=== PATIENT | female | born 1940 | race Caucasian/White ===

== ENCOUNTER 2017-10-25 22:29 | Emergency (ER) | payer OTHER ==
[~2017-10-25] VITALS: Ht 167.6 cm; Wt 65.5 kg
[~2017-10-25 22:29] MED LIST: ACP20 PO; APR25 PO; ASPI81TA28 PO; CYAN10005 PO; FURO-85 PO; LEVO88TA3 PO; LPT10 PO; METO25TA3 PO
[2017-10-25 22:34] VITALS: TEMP 36.5; Ht 167.6 cm; Wt 65.5 kg
[2017-10-25] MEDS ORDERED: RABE20TA5 PO (23:15)
[2017-10-25] MEDS ORDERED: ACETAMINOPHEN 500 MG TAB PO STA (23:22)
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
[2017-10-26 01:55] VITALS: BP 159/92; PULSE 76; O2SAT 98
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
== END 2017-10-26 01:57 | disposition home or self-care (01) ==
LOC: EDBD 22:29 → C.EDC 22:30
DX: S16.1XXA Strain of muscle, fascia and tendon at neck level, initial encounter (principal); V89.2XXA Person injured in unspecified motor-vehicle accident, traffic, initial encounter; Z04.3 Encounter for examination and observation following other accident; N18.3 Chronic kidney disease, stage 3 (moderate); Z82.49 Family history of ischemic heart disease and other diseases of the circulatory system; Z79.82 Long term (current) use of aspirin

== ENCOUNTER → 2017-10-30 | Day surgery (SDC) | payer OTHER ==
[2017-10-27 12:53] VITALS: Ht 167.6 cm; Wt 62.7 kg
[~2017-10-30] VITALS: Ht 167.6 cm; Wt 62.7 kg
[~2017-10-30] MED LIST changes: +500ML BSSPLUS 0.5ML EPI1:1000 IRRIG ONE; +ACETAMINOPHEN 325 MG TAB PO PRN; -ACP20 PO; +ATROPINE SULFATE 0.1 MG/ML 5ML SYR IV PRN; +ATROPINE SULFATE 1% OP SOLN 2 ML BTL ONE; +BSS FLUSH ONE; +BUPIVACAINE HCL 0.75% 10 ML AMP/VIAL ONE; +CEFAZOLIN SOD 1 GM VIAL ONE; -CYAN10005 PO; +DEXAMETHASONE SOD INJ 4 MG/ML VIAL ONE; +EpHEDrine SULFATE INJ 50 MG/ML AMP IV PRN; +EpINEphrine INJ 1MG/ML AMP 1 MG/ML AMP ONE; +FENTANYL CITRATE INJ 50 MCG/1 ML 2 ML VIAL IV PRN; +FENTANYL CITRATE INJ 50 MCG/1 ML 2 ML VIAL ONE; +HYALURONIDASE HUMAN 150 UNIT/ML INJ ONE; +INDOCYANINE GREEN 25 MG/10 ML ONE; +LACTATED RINGER'S 1000ML 500 ML IV SCH; +LIDOCAINE HCL 2% 2 ML VIAL (20MG/ML) ONE; -LPT10 PO; +MIDAZOLAM HCL 1 MG/ML 2ML VIAL ONE; +NEOMYCIN/POLYMYX/DEXAMETH OP OINT PER APP CHARGE OPL ONE; +OCUCOAT 1 ML SOLN IO ONE; +ONDANSETRON INJ 2 MG/ML 2 ML VIAL IV PRN; +PHENYLEPHRINE HCL 10% OP SOLN PER DROP CHARGE ONE; +PHENYLEPHRINE HCL 2.5% OP SOLN PER DROP CHARGE OPL SCH; +POVIDONE-IODINE OP SOLN (SURGERY CNTR CHARGING ONLY) ONE; +PROPARACAINE 0.5% OP SOLN PER DROP CHARGE OPL SCH; +PROPOFOL IV EMULSION 10 MG/ML 20 ML VIAL IV ONE; +RABE20TA5 PO; +TRIAMCINOLONE ACETONIDE OPHTH 40 MG/ML VIAL STERILE IO ONE; +TROPICAMIDE 1% OP SOLN PER DROP CHARGE OPL SCH; +VANCOMYCIN HCL 1000MG/20ML VIAL ONE
--- NOTE | 2017-10-30 06:59 | History & Physical Bridge - SC ---
H&P Re-Evaluation Bridge Note: Pt has epiretinal membrane in left eye and is having vitrectomy left eye. I have examined the patient, reviewed the History & Physical and in the interval since the performance of the History & Physical I have noted the following changes of clinical significance: No changes noted
--- NOTE | 2017-10-30 08:11 | [facility] Operative Report ---
Operative Report Date of Service Oct 30, 2017. Operative Report PREOPERATIVE DIAGNOSIS: Epiretinal membrane, left eye. ICD10: H35.372 POSTOPERATIVE DIAGNOSIS: same. PROCEDURE: 1. Pars plana vitrectomy, 23 gauge. 2. Membrane peeling of the internal limiting membrane and overlying epiretinal membrane. 3. Endolaser. All to the left eye. CPT CODE: 62670 SURGEON: Mario Munoz D.O. COMPLICATIONS: None. ESTIMATED BLOOD LOSS: None. SPECIMENS: None. ANESTHESIA: Retrobulbar block and MAC. INDICATIONS FOR PROCEDURE: The patient has an epiretinal membrane that is visually significant. Vitrectomy surgery is indicated to decrease risk of vision loss and potentially improve vision. CONSENT: The risks, benefits and alternatives were discussed with the patient including but not limited to decreased visual acuity, failure to achieve desired results, loss of the eye, infection, pain, glaucoma, lens changes, retinal tears, retinal detachment, the need for more procedures, drooping of the eyelid, blindness, and double vision. The patient is aware of risks and consents to the surgery. Consent is signed and on the chart. OPERATION AND FINDINGS: The patient was brought to the operating room where the patient was identified by name, date, and medical record number. The surgical site was confirmed with the informed written consent. The patient was sedated by the anesthesiology team after which a 50:50 mixture of 2% lidocaine and 0.75% bupivacaine with hyaluronidase was administered in a standard retrobulbar fashion. A total of 4 ml was administered without difficulty. The patient was then prepped and draped in the usual sterile manner for retinal surgery. A wire lid speculum was placed and an Bob 23-gauge trocar cannula system was employed. The inferior temporal trocar cannula was first placed in an angled fashion 3.75mm posterior to the surgical limbus and the infusion cannula was inserted into this cannula after which the intravitreal position was verified prior to turning the infusion on. Two more trocar cannulas were then inserted in an angled fashion, one in the superior temporal, and one in the superior nasal quadrant both 3.75mm posterior to the surgical limbus. A light pipe and vitrector were then introduced into the eye and the BIOM wide angle viewing system was brought into place. Standard core vitrectomy was performed the vitreous was insured to be totally detached from the posterior pole with the aid of the vitrector. Next 0.05ml of indocyanine green was placed over the macular surface to stain the internal limiting membrane. This was washed from the eye after 10 seconds. At this point a flat contact lens was placed on the surface of the eye and a flex scraper and ILM forceps were used to gently peel the internal limiting membrane and overlying epiretinal membrane off of the macular surface without difficulty. At this point scleral depression was performed for 360 degrees and no retinal tears or detachments were noted but an area of retina traction was noted superior nasally and this area was surrounded by laser. The trocar cannulas were then removed and the superior trocar sites were closed with 8-0 Vicryl suture. The intraocular pressure was found to be within normal limits by palpation and subconjunctival injections of vancomycin and dexamethasone were administered inferiorly and superiorly. The wire lid speculum was removed. Maxitrol was applied to the surface of the eye. A light patch and shield were taped over the surface of the eye and the patient left the Operating Room in stable condition having tolerated the procedure well. DISPOSITION: The patient has an appointment the following morning in the Ophthalmology Clinic. The patient is to call immediately if there are any problems overnight. I attest to the content of the Intraoperative Record and any orders documented therein. Any exceptions are noted below.
--- NOTE | 2017-10-30 08:12 | Discharge Instructions-SurgCtr ---
Discharge Instructions Date of Service Oct 30, 2017. Visit Reason for Visit: Left Eye Epiretinal Membrane Discharge Discharge Diagnosis / Problem: same Discharge Goals Goal(s): Improve function Medications Stopped Medications Name(s): Aspirin and hydralizine. 10/30/17 Activity Recommendations Activity Limitations: per Instructions/Follow-up section Anesthesia . Post Anesthesia Instructions: If you have had General Anesthesia or IV Sedation: * Do not drive today. * Resume driving when surgeon permits. * Do not make important decisions or sign legal documents today. * Call surgeon for: 1. Temperature elevations greater than 101 degrees F. 2. Uncontrollable pain. 3. Excessive bleeding. 4. Persistent nausea and vomiting. 5. Medication intolerance (nausea, vomiting or rash). * For nausea and vomiting use only clear liquids such as: tea, soda, bouillon until nausea subsides, then gradually increase diet as tolerated. * If you have any concerns or questions, call your surgeon's office. If physician is unavailable and it is an emergency, call 911 or go to the nearest emergency room. . Instructions / Follow-Up Instructions / Follow-Up * May take Tylenol if needed for discomfort. * Do NOT remove eye shield. * NO straining, heavy lifting (>15 pounds) or bending below waist. * Avoid getting water or soap directly into operative eye. * Do NOT rub eye. If you experience increasing eye pain not relieved by medication, please contact us immediately at [phone]. If you are unable to reach someone at the above number, call [phone] and ask to speak with the EYE DOCTOR CARD FIXER. Inform them that you are a Dr. Munoz patient who had recent surgery. Diet Recommendations Home Diet: resume previous diet Procedures Procedures Performed: Left Eye 23 Gauge Vitrectomy, Laser, Membrane peel Pending Studies Studies pending at discharge: no Medical Emergencies . Who to Call and When: Medical Emergencies: If at any time you feel your situation is an emergency, please call 911 immediately. . Non-Emergent Contact Non-Emergency issues call your: Disability Examiner . . "Provider Documentation" section prepared by Mario Munoz. .
[2017-10-30 08:13] VITALS: TEMP 36.9
--- NOTE | 2017-10-30 08:28 | Anesthesia Progress Nt - [facility] ---
Anesthesia Post Op Note Date & Time Oct 30, 2017 at 08:28 Vital Signs Pain Intensity: 0 Vital Signs Past 12 Hours Date Time Temp Pulse Resp B/P (MAP) Pulse Ox O2 Delivery O2 Flow Rate FiO2 10/30/17 08:13 36.9 70 18 164/95 (118) 98 Room Air 10/30/17 06:31 37.2 85 18 160/97 (118) 95 Room Air Notes Mental Status: alert / awake / arousable, participated in evaluation Pt Amnestic to Procedure: Yes Nausea / Vomiting: adequately controlled Pain: adequately controlled Airway Patency, RR, SpO2: stable & adequate BP & HR: stable & adequate Hydration State: stable & adequate Anesthetic Complications: no major complications apparent
[2017-10-30 08:40] VITALS: BP 143/84; PULSE 71; O2SAT 97
== END | disposition home or self-care (01) ==
LOC: X.SURG 06:11
PROVIDERS: ATTEND Ophthalmology
DX: H35.372 Puckering of macula, left eye (principal); N18.3 Chronic kidney disease, stage 3 (moderate); Z98.49 Cataract extraction status, unspecified eye; I12.9 Hypertensive chronic kidney disease with stage 1 through stage 4 chronic kidney disease, or unspecified chronic kidney disease

== ENCOUNTER 2019-06-12 21:30 | Inpatient (IN) ==
[2019-06-12] MEDS ORDERED: SODIUM CHLORIDE 0.9% 1000ML 1,000 ML IV SCH (21:45)
[2019-06-12 22:18] LABS: Basophils # (auto) 0.04 K/uL (0-0.2); Basophils % (auto) 0.6 %; Hematocrit (blood only) 37.7 % (37-47); Hemoglobin 12.4 g/dL (12.0-16.0); Immature Granulocytes # (auto) 0.02 K/uL (0.00-0.02); Immature Granulocytes % (auto) 0.3 %; Lymphocytes # (auto) 1.71 K/uL (1.2-3.4); Lymphocytes % (auto) 24.5 %; Mean Corpuscular Hgb Conc 32.9 g/dL (32-36); Mean Corpuscular Volume 85.3 fL (80-100); Mean Platelet Volume 9.7 fL (7.4-10.4); Monocytes # (auto) 0.61 K/uL (0.11-0.59); Monocytes % (auto) 8.7 %; Neutrophils # (auto) 4.61 K/uL (1.4-6.5); Neutrophils % (auto) 65.9 %; Platelet Count 275 K/uL (130-400); RDW Coefficient of Variation 14.2 % (11.5-14.5); RDW Standard Deviation 44.5 fL (36.4-46.3); Red Blood Count 4.42 M/uL (4.2-5.4); White Blood Count 6.99 K/uL (4.8-10.8)
[2019-06-12 22:33] LABS: Partial Thromboplastin Time 28.4 Seconds (21.0-31.0); Prothrombin Time 10.5 Seconds (9.0-12.0)
[2019-06-12 22:36] LABS: Alanine Aminotransferase 20 U/L (12-78); Albumin Level 3.5 gm/dl (3.4-5.0); Aspartate Aminotransferase 15 U/L (15-37); BUN Creatinine Ratio 18.9 (10-20); Blood Urea Nitrogen 26 mg/dl (7-18); Calcium 8.8 mg/dl (8.5-10.1); Carbon Dioxide 24 mmol/L (21-32); Chloride 114 mmol/L (98-107); Creatinine Clr Calc Pharmacy 30.4 ml/min; Est GFR (African American) 41.7; Glucose 106 mg/dl (70-99); Potassium 4.4 mmol/L (3.5-5.1); Sodium 143 mmol/L (136-145)
[2019-06-12 22:41] LABS: Albumin Globulin Ratio 1.2 (0.9-2); Alkaline Phosphatase 68 U/L (45-117); Bilirubin,Total 0.3 mg/dl (0.2-1); Globulin 2.9 gm/dl (2.5-4.0); Total Protein 6.4 gm/dl (6.4-8.2); Troponin I < 0.015 ng/ml (0-0.045)
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
--- NOTE | 2019-06-12 23:53 | Emergency Department Note ---
Entered by Adrianna Pérez acting as a scribe for Alton Adams DO History of Present Illness General Chief complaint: Rectal Bleed Stated complaint: RECTAL BLEED Source: patient History of Present Illness Onset (ago): hour(s) (3.5) Location: abdomen Pain Consistency: + other (episode) Maximum Pain Intensity: 0 Quality: + other (rectal bleeding ) Associated symptoms: + nausea/vomiting (positive nausea; negative vomiting ) and + other (negative abdominal pain; negative runny nose); no chest pain and no cough The patient is a 78 year old female with PMHx of CKD who presents to the Emergency Room with complaints of an episode of rectal bleeding that began at about 1800, 3.5 hours prior to arrival. She states that she was not straining to use the restroom any more than usual. The patient reports there was no stool, just blood along with several clots. The patient denies abdominal pain, chest pain, runny nose, and cough. She reports some nausea. The patient states that she takes aspirin regularly. She has that her abdomen does feel little bit upset but has no significant pain. No other exacerbating or remitting factors. Home Medications Home Medications Medication Instructions Recorded Confirmed Type aspirin 81 mg PO QAM 06/12/19 06/12/19 History cholecalciferol (vitamin D3) 2,000 unit PO QAM 06/12/19 06/12/19 History [Vitamin D3] furosemide 20 mg PO DAILY PRN 06/12/19 06/12/19 History hydralazine 25 mg PO TID 06/12/19 06/12/19 History levothyroxine 75 mcg PO QAM 06/12/19 06/12/19 History metoprolol succinate 25 mg PO QAM 06/12/19 06/12/19 History rabeprazole 20 mg PO QAM 06/12/19 06/12/19 History Allergies Allergy/AdvReac Type Severity Reaction Status Date / Time cephalexin Allergy Unknown HIVES Verified 06/12/19 22:38 felodipine Allergy Unknown FACE Verified 06/12/19 22:38 FLUSHED, ANKLES SWELLING glycopyrrolate Allergy Unknown WEAKNESS, Verified 06/12/19 22:38 FLUSING, BLOATING Iodinated Contrast- Oral and Allergy Unknown UNKNOWN Verified 06/12/19 22:38 IV Dye iodine Allergy Unknown UNKNOWN Verified 06/12/19 22:38 metoclopramide Allergy Unknown DIZZY, Verified 06/12/19 22:38 DROWSY omeprazole Allergy Unknown TROUBLE Verified 06/12/19 22:38 BREATHING Sulfa (Sulfonamide Allergy Unknown HIVES Verified 06/12/19 22:38 Antibiotics) Past Med/Surg History Medical History Chronic kidney disease, stage III (moderate) (Chronic) Social History Preferred Language: Cymraes Feels Safe at Home: Yes Smoking Status: Never smoker Review of Systems See HPI for pertinent positives & negatives. and A total of 10 systems reviewed and were otherwise negative Physical Exam Vital Signs Vital Signs - 24 hr 06/12/19 21:31 06/12/19 22:24 06/12/19 22:34 Temperature 36.5 C Temperature Source Oral Sepsis Recent Fever Within 48 Hours No Sepsis Action Taken by Nursing No Action Required Pulse Rate 100 H Pulse Rate [Apical] 80 Pulse Rhythm Regular Pulse Strength Normal Respiratory Rate 20 18 Respiratory Effort / Characteristics Non-Labored Spontaneous Non-Labored Respiratory Depth Normal Normal Blood Pressure 153/87 H Blood Pressure [Right Arm] 149/95 H Blood Pressure Mean 109 Blood Pressure Mean [Right Arm] 113 Blood Pressure Position Sitting Pulse Oximetry 97 97 97 Oxygen Delivery Method Room Air Room Air Room Air 06/12/19 23:39 Temperature Temperature Source Sepsis Recent Fever Within 48 Hours Sepsis Action Taken by Nursing Pulse Rate Pulse Rate [Apical] 80 Pulse Rhythm Pulse Strength Respiratory Rate 18 Respiratory Effort / Characteristics Respiratory Depth Blood Pressure Blood Pressure [Right Arm] 161/98 H Blood Pressure Mean Blood Pressure Mean [Right Arm] 119 Blood Pressure Position Pulse Oximetry 98 Oxygen Delivery Method Room Air GENERAL: Sitting up in bed, talking in full sentences. non-toxic EYE EXAM: normal conjunctiva OROPHARYNX: no exudate, no erythema, lips, buccal mucosa, and tongue normal and mucous membranes are moist NECK: supple, no nuchal rigidity, no adenopathy, non-tender LUNGS: Clear to auscultation. Normal chest wall mechanics HEART: no murmurs, S1 normal and S2 normal ABDOMEN: abdomen soft, non-tender, normo-active bowel sounds, no masses, no rebound or guarding. BACK: Back is symmetrical on inspection and there is no deformity, no midline tenderness, no CVA tenderness. RECTAL: deferred as she had bright red blood in the commode. SKIN: no rashes and no bruising UPPER EXTREMITIES: upper extremities are grossly normal. LOWER EXTREMITIES: No pitting edema. NEURO EXAM: Normal sensorium, cranial nerves II-XII grossly intact, normal speech, no gross weakness of arms, no gross weakness of legs. Course ED COURSE: Vital signs were reviewed and showed hypertensive. The patients medical record was reviewed The above diagnostic studies were performed and reviewed. ED treatments and interventions as stated above. 8: The patient was evaluated in room B10. A complete history and physical examination was performed. 0: The patient had another episode of a bowel movement with bright red blood. 4: Upon reevaluation, the patient is .I discussed my findings with the patient and she understands and agrees with the treatment plan. 7: [facility] for further evaluation. Based on the patients age, coexisting illnesses, exam and lab findings the decision to treat as an inpatient was made. The patient remained stable while under my care. The patient will be evaluated for further management. Administered Medications Discontinued Medications Sodium Chloride (Nss 1000ml) 1,000 mls @ 999 mls/hr IV .Q1H1M DUGLAS Stop: 06/12/19 22:45 Last Admin: 06/12/19 22:44 Dose: 999 mls/hr Documented by: [id number] Medical Decision Making Differential Diagnosis Differential diagnoses includes but is not limited to gastritis, peptic ulcer disease, GERD, gallbladder disease, pancreatitis, small bowel obstruction, acute coronary syndrome, pericarditis, ischemic bowel, irritable bowel disease, irritable bowel syndrome, appendicitis, diverticulitis, malignancy, hernia, urinary tract infection, torsion, /ectopic (if female), perforation, trauma, infectious. Medical Records Attestation: I reviewed the patient's medical records. Home Medications Current Medication List: was personally reviewed by me Laboratory Data Attestation: I reviewed the patient's lab results. Result diagrams: 06/12/19 22:07 06/12/19 22:07 Lab Results 06/12/19 06/12/19 06/12/19 Range/Units 22:07 22:07 22:07 WBC 6.99 (4.8-10.8) K/uL RBC 4.42 (4.2-5.4) M/uL Hgb 12.4 (12.0-16.0) g/dL Hct 37.7 (37-47) % MCV 85.3 (80-100) fL MCH 28.1 (25-34) pg MCHC 32.9 (32-36) g/dL RDW Std Deviation 44.5 (36.4-46.3) fL RDW Coeff of Leslie 14.2 (11.5-14.5) % Plt Count 275 (130-400) K/uL MPV 9.7 (7.4-10.4) fL Immature Gran % (Auto) 0.3 % Neut % (Auto) 65.9 % Lymph % (Auto) 24.5 % [place] % (Auto) 8.7 % Eos % (Auto) 0.0 % Baso % (Auto) 0.6 % Immature Gran # (Auto) 0.02 (0.00-0.02) K/uL Neut # (Auto) 4.61 (1.4-6.5) K/uL Lymph # (Auto) 1.71 (1.2-3.4) K/uL [place] # (Auto) 0.61 H (0.11-0.59) K/uL Eos # (Auto) 0.00 (0-0.5) K/uL Baso # (Auto) 0.04 (0-0.2) K/uL PT 10.5 (9.0-12.0) Seconds INR 1.0 (0.9-1.1) APTT 28.4 (21.0-31.0) Seconds PTT Ratio 1.0 Sodium 143 (136-145) mmol/L Potassium 4.4 (3.5-5.1) mmol/L Chloride 114 H (98-107) mmol/L Carbon Dioxide 24 (21-32) mmol/L Anion Gap 6.0 (3-11) BUN 26 H (7-18) mg/dl Creatinine 1.38 H (0.6-1.2) mg/dl Est Cr Clr Drug Dosing 30.4 ml/min Est GFR ( Amer) 41.7 Est GFR (Non-Af Amer) 36.0 BUN/Creatinine Ratio 18.9 (10-20) Glucose 106 H (70-99) mg/dl Calcium 8.8 (8.5-10.1) mg/dl Total Bilirubin 0.3 (0.2-1) mg/dl AST 15 (15-37) U/L ALT 20 (12-78) U/L Alkaline Phosphatase 68 (45-117) U/L Troponin I < 0.015 (0-0.045) ng/ml Total Protein 6.4 (6.4-8.2) gm/dl Albumin 3.5 (3.4-5.0) gm/dl Globulin 2.9 (2.5-4.0) gm/dl Albumin/Globulin Ratio 1.2 (0.9-2) POC Stool Occult Blood (Negative) Blood Type Antibody Screen 06/12/19 06/12/19 Range/Units 22:10 Unknown WBC (4.8-10.8) K/uL RBC (4.2-5.4) M/uL Hgb (12.0-16.0) g/dL Hct (37-47) % MCV (80-100) fL MCH (25-34) pg MCHC (32-36) g/dL RDW Std Deviation (36.4-46.3) fL RDW Coeff of Leslie (11.5-14.5) % Plt Count (130-400) K/uL MPV (7.4-10.4) fL Immature Gran % (Auto) % Neut % (Auto) % Lymph % (Auto) % [place] % (Auto) % Eos % (Auto) % Baso % (Auto) % Immature Gran # (Auto) (0.00-0.02) K/uL Neut # (Auto) (1.4-6.5) K/uL Lymph # (Auto) (1.2-3.4) K/uL [place] # (Auto) (0.11-0.59) K/uL Eos # (Auto) (0-0.5) K/uL Baso # (Auto) (0-0.2) K/uL PT (9.0-12.0) Seconds INR (0.9-1.1) APTT (21.0-31.0) Seconds PTT Ratio Sodium (136-145) mmol/L Potassium (3.5-5.1) mmol/L Chloride (98-107) mmol/L Carbon Dioxide (21-32) mmol/L Anion Gap (3-11) BUN (7-18) mg/dl Creatinine (0.6-1.2) mg/dl Est Cr Clr Drug Dosing ml/min Est GFR ( Amer) Est GFR (Non-Af Amer) BUN/Creatinine Ratio (10-20) Glucose (70-99) mg/dl Calcium (8.5-10.1) mg/dl Total Bilirubin (0.2-1) mg/dl AST (15-37) U/L ALT (12-78) U/L Alkaline Phosphatase (45-117) U/L Troponin I (0-0.045) ng/ml Total Protein (6.4-8.2) gm/dl Albumin (3.4-5.0) gm/dl Globulin (2.5-4.0) gm/dl Albumin/Globulin Ratio (0.9-2) POC Stool Occult Blood Positive A (Negative) Blood Type O Positive Antibody Screen NEGATIVE Imaging Data Radiologist's Impression: Radiology results as stated below per my review and the radiologist's interpretation: CT abd pelvis wo con CT DOSE: 301.78 mGy.cm HISTORY: Pain. Bleeding. GI bleed abd pain TECHNIQUE: Multiaxial CT images of the abdomen and pelvis were performed without contrast. A dose lowering technique was utilized adhering to the principles of ALARA. COMPARISON STUDY: 12/10/2008 FINDINGS: Limited study due to the absence of contrast enhancement. The liver spleen and pancreas are unremarkable. Bowel pattern is nonobstructive. Scattered colonic diverticulosis. No evidence for acute diverticulitis. Liquid stool within the rectum. Bladder is midline. IMPRESSION: 1. Scattered colonic diverticuli. 2. Otherwise negative study within the limitations of an unenhanced scan. The above report was generated using voice recognition software. It may contain grammatical, syntax or spelling errors. Electronically signed by: Fernando Barakat M.D. 06/12/2019 11:22 PM ECG Data Attestation: I personally reviewed and interpreted this ECG as follows: Indication: nausea Rate (beats per minute): 69 Rhythm: sinus rhythm Findings: + other (normal axis; nonspecific ST wave changes in the inferior and lateral leads ) Comparison ECG Date: from (06/15/16) Change: no significant change Blood Pressure Blood Pressure Findings: Elevated blood pressure Blood Pressure Disposition: further management by hospitalist MDM Narrative Patient is an 78-year-old female who presents the ER for bright red blood per rectum x3 episodes. She admits to taking aspirin but no other complaints. She denies any straining. She does have some mild abdominal discomfort. She was sl ightly hypertensive. IV was established blood work was obtained showed no significant leukocytosis or anemia. INR was unremarkable. BMP with a creatinine of 1.38. LFTs bilirubin and troponin was unremarkable. Patient was typed and screened. She is given IV fluids. CT abdomen pelvis shows no acute pathology. Patient was updated bedside and discussed with the hospitalist for observation due to 3 episodes of bright red blood per rectum. Patient without persistent diarrhea and consequently C. difficile was not ordered. Impression & Plan GI bleed, Abdominal pain Discharge Plan Visit Data Chief Complaint: Rectal Bleed Stated Complaint: RECTAL BLEED ED Provider: Alton Adams Discharge Problem: GI bleed, Abdominal pain Patient Disposition: Being Evaluated by Hospitalist Forms Stand Alone Forms: My [facility] Prescriptions Prescriptions: No Action rabeprazole 20 mg tablet,delayed release (DR/EC) 20 mg PO QAM RF: 0 hydralazine 25 mg tablet 25 mg PO TID RF: 0 aspirin 81 mg Tablet,Delayed Release (Dr/Ec) 81 mg PO QAM RF: 0 levothyroxine 75 mcg tablet 75 mcg PO QAM RF: 0 furosemide 20 mg tablet 20 mg PO DAILY PRN (Reason: Edema) RF: 0 metoprolol succinate 25 mg tablet extended release 24 hr 25 mg PO QAM RF: 0 cholecalciferol (vitamin D3) [Vitamin D3] 2,000 unit Tablet 2,000 unit PO QAM RF: 0 Referrals Referrals: Angelito Guzman MD [Primary Care Provider] - Discharge Problem: GI bleed Qualifiers: GI bleed type/associated pathology: unspecified gastrointestinal hemorrhage type Qualified Code(s): K92.2 - Gastrointestinal hemorrhage, unspecified Abdominal pain Qualifiers: Abdominal location: generalized Qualified Code(s): R10.84 - Generalized a bdominal pain The scribe's documentation has been prepared under my direction and personally reviewed by me in its entirety. I confirm that the note above accurately reflects all work, treatment, procedures, and medical decision making performed by me.
[2019-06-13] MEDS ORDERED: SODIUM CHLORIDE 0.9% 250 ML IV PRN (02:37)
[2019-06-13] MEDS: SODIUM CHLORIDE 0.9% 1000ML 1,000 ML IV SCH ×3 (03:37→23:15)
[2019-06-13 05:28] LABS: Basophils # (auto) 0.02 K/uL (0-0.2); Basophils % (auto) 0.3 %; Hematocrit (blood only) 28.1 % (37-47); Hemoglobin 9.3 g/dL (12.0-16.0); Immature Granulocytes # (auto) 0.04 K/uL (0.00-0.02); Immature Granulocytes % (auto) 0.7 %; Lymphocytes # (auto) 1.53 K/uL (1.2-3.4); Mean Corpuscular Hgb Conc 33.1 g/dL (32-36); Mean Corpuscular Volume 86.5 fL (80-100); Mean Platelet Volume 9.7 fL (7.4-10.4); Monocytes # (auto) 0.46 K/uL (0.11-0.59); Monocytes % (auto) 7.5 %; Neutrophils # (auto) 4.06 K/uL (1.4-6.5); Neutrophils % (auto) 66.5 %; Platelet Count 237 K/uL (130-400); RDW Coefficient of Variation 14.3 % (11.5-14.5); RDW Standard Deviation 45.2 fL (36.4-46.3); Red Blood Count 3.25 M/uL (4.2-5.4); White Blood Count 6.11 K/uL (4.8-10.8)
[2019-06-13 05:40] LABS: BUN Creatinine Ratio 22.2 (10-20); Calcium 7.7 mg/dl (8.5-10.1); Creatinine Clr Calc Pharmacy 36.8 ml/min; Est GFR (African American) 52.6; Est GFR (Non-African American) 45.4; Potassium 4.6 mmol/L (3.5-5.1)
[2019-06-13] MEDS: LEVOTHYROXINE SODIUM 75 MCG TABLET PO SCH (06:33)
--- NOTE | 2019-06-13 08:17 | History and Physical Report ---
DATE OF ADMISSION: 06/13/2019 CHIEF COMPLAINT: Bright red blood per rectum. HISTORY OF PRESENT ILLNESS: This is an 78-year-old female with past medical history significant for hypothyroidism, hyperlipidemia, chronic kidney disease stage III, hypertension, irritable bowel syndrome, Moncada's esophagus, gastroparesis, history of cervical disease with myelopathy, presents with bright red blood per rectum. It started yesterday evening. Few episodes at home and couple of episodes in the ER. Hemodynamically stable. This is the first time it happened. Denies abdominal pain. No nausea, no vomiting. Currently resting comfortably and hemodynamically stable. Denies any chest pain, no shortness of breath, no cough, no fever, no chills, no headache, no blurred vision, no earache, no runny nose, no sore throat, no difficulty swallowing. Otherwise, appetite is okay. Lives with her . Ambulates okay. ALLERGIES: CEPHALEXIN, FELODIPINE, GLYCOPYRROLATE, IV DYE, IODINE, REGLAN, OMEPRAZOLE, SULFA ANTIBIOTICS. PAST MEDICAL HISTORY: As mentioned above. PAST SURGICAL HISTORY: Breast lesion excision, colonoscopy with biopsy, EGDs with biopsies, EGD with endoscopic ultrasound, partial removal of thyroid lobe, cataract surgery bilateral, inguinal hernia repair, small bowel endoscopy with biopsy, total hysterectomy and left vitrectomy. MEDICATIONS: The patient is on vitamin D 2000 units p.o. daily, rabeprazole 20 mg p.o. daily, Toprol-XL 25 mg p.o. daily, hydralazine 25 mg p.o. t.i.d., levothyroxine 75 mcg daily, Lasix 20 mg p.r.n., aspirin 81 mg p.o. daily. FAMILY HISTORY: Significant for father had prostate cancer. Mother had lung cancer. Sister has pancreatic cancer. SOCIAL HISTORY: , lives with her . No smoking. Alcohol occasional. No drug use. REVIEW OF SYMPTOMS: As per HPI. Rest of review of systems negative. PHYSICAL EXAMINATION: GENERAL: The patient is of moderate build, not in acute distress. VITAL SIGNS: Temperature 36.4, pulse 79, respiratory rate 18, blood pressure 121/78, oxygen 98% room air. HEENT: No pallor, no icterus. Pupils equal, round, reactive to light. NECK: No JVD, no neck masses, no carotid bruits. CARDIOVASCULAR: S1, S2 heard, regular rate and rhythm, no murmur, no gallop. RESPIRATORY SYSTEM: Normal AP diameter. No accessory muscle use. No wheezing, no crackles. ABDOMEN: Soft, bowel sounds present, nontender. No distention. CENTRAL NERVOUS SYSTEM: Cranial nerves II-XII grossly intact. Nonfocal. EXTREMITIES: No edema, no erythema. LABORATORY DATA: WBC 6.1, hemoglobin when she came in was 12.4, hematocrit 28.1, platelets 237. PT 10.5, INR 1, APTT 28.4. Sodium 142, potassium 4.4, chloride 114, CO2 24, BUN 26, creatinine 1.38, serum glucose 106, calcium 8.8. Total bilirubin 0.3, AST 15, ALT 20, alkaline phosphatase 60. Troponin I less than 0.015. Hemoccult positive. EKG: Normal sinus rhythm, rate of 69, nonspecific ST abnormality seen. CT of the abdomen and pelvis shows scattered colonic diverticula, otherwise negative study. ASSESSMENT AND PLAN: This is an 78-year-old female presents with painless bright red blood per rectum. 1. Bright red blood per rectum. No abdominal pain. CAT scans showing scattered diverticula, most likely diverticular bleed, has significant amount of bleeding. We will follow hemoglobin and hematocrit q.6 hours. We will type and cross and hold 2 units of PRBCs and transfuse if hemoglobin drops down. Currently hemodynamically stable. Keep her n.p.o. IV Protonix b.i.d. Most likely lower gastrointestinal bleed. We will consult gastroenterology in a.m. for further recommendations. Close monitor on tele floor. 2. History of hypertension. Continue home Toprol-XL with holding parameters and hydralazine with holding parameters. 3. Chronic kidney disease stage III, baseline creatinine 1.4-1.6, presented with creatinine of 1.3. We will follow the labs. 4. Deep venous thrombosis prophylaxis, sequential compression devices for now. 5. Disposition: Closely monitor in tele floor. Level 1 full code. MTDD
[2019-06-13] MEDS: METOPROLOL SUCC 25MG EXT REL TAB PO SCH (08:21)
[2019-06-13] MEDS: PANTOprazole 40 MG in SYRINGE 0 ML IV SCH ×2 (08:22→20:23)
--- NOTE | 2019-06-13 08:32 | Gastrointestinal Consultation ---
Date of Consultation June 13, 2019 Assessment & Plan (1) GI bleed: Ms. Mariela Diallo is an 78 yr old female with significant (drop in Hb) painless rectal bleeding. In the setting of diverticulosis, this most likely represents a diverticular bleed. 1. Colonoscopy prep today. 2. Clear liquids po today. 3. Appreciate primary hospitalists management of fluid/blood resuscitation. Transfuse if indicated. 4. Please keep careful VS and output records. If bleeding continues then colonoscopy tomorrow. If no further rectal bleeding and no further drop in Hb, then could defer to outpatient colonoscopy in a few months. Present on Admission?: Yes Supervising Physician Co-Signing Physician Notes I saw and evaluated the patient. She presents with painless hematochezia. She notes that the last bowel movement with blood in it was last evening. Physical examination No obvious distress no abdominal tenderness Impression: Patient likely with a diverticular hemorrhage. We are certainly happy to provide a bowel preparation this evening to see if the bleeding has truly discontinued. If bleeding persists we could try and perform a colonoscopy tomorrow otherwise, I would recommend a delayed colonoscopy in 6 to 8 weeks. History of Present Illness Reason for Consultation: Rectal bleed. Requesting Physician: Dr. Terry Attending Physician: Freedom Le MD History of Present Illness Ms. Mariela Diallo is an 78 yr old female pt of Dr. Guzman with a hx of CKD3, hypothyroid, HTN, Moncada's esophagus was brought to the ED last evening because she experienced two episodes of painless bright red BMs with clots. This occurred last evening at 6PMand 8:30PM. On arrival: Hb 12->9.3. BUN26->25 but Cr also mildly elevated at 1.4. Noncontrast Ct with diverticulosis. She denies any abdominal pain, "just a little gurgling before the first BM." No fevers, chills, sweats, nausea, vomiting CP or SOB. INR is 1.1 and she is not on any anticoagulants but does take ASA 81mg/day. Her most recent colonoscopy was in [address] Iverson with on 7mm polyp, sigmoid diverticulosis and internal hemorrhoids. Allergies Allergy/AdvReac Type Severity Reaction Status Date / Time cephalexin Allergy Unknown HIVES Verified 06/12/19 22:38 felodipine Allergy Unknown FACE Verified 06/12/19 22:38 FLUSHED, ANKLES SWELLING glycopyrrolate Allergy Unknown WEAKNESS, Verified 06/12/19 22:38 FLUSING, BLOATING Iodinated Contrast- Oral and Allergy Unknown UNKNOWN Verified 06/12/19 22:38 IV Dye iodine Allergy Unknown UNKNOWN Verified 06/12/19 22:38 metoclopramide Allergy Unknown DIZZY, Verified 06/12/19 22:38 DROWSY omeprazole Allergy Unknown TROUBLE Verified 06/12/19 22:38 BREATHING Sulfa (Sulfonamide Allergy Unknown HIVES Verified 06/12/19 22:38 Antibiotics) Home Medications Home Medications Medication Instructions Recorded Confirmed Type aspirin 81 mg PO QAM 06/12/19 06/12/19 History cholecalciferol (vitamin D3) 2,000 unit PO QAM 06/12/19 06/12/19 History [Vitamin D3] furosemide 20 mg PO DAILY PRN 06/12/19 06/12/19 History hydralazine 25 mg PO TID 06/12/19 06/12/19 History levothyroxine 75 mcg PO QAM 06/12/19 06/12/19 History metoprolol succinate 25 mg PO QAM 06/12/19 06/12/19 History rabeprazole 20 mg PO QAM 06/12/19 06/12/19 History Patient History Medical History Chronic kidney disease, stage III (moderate) (Chronic) Family History Sister Cancer Mother Cancer Father Cancer Social History Preferred Language: Arabic Communication Ability: Effective Rubber Liner Required: No Beliefs That Will Affect Care: None Current Living Situation: Spouse Other Information That Helps Us Care for You: No Feels Safe at Home: Yes Safety Concerns: Feels Safe At This Time Smoking Status: Never smoker Hx Alcohol Use: Yes Hx Substance Use: No Review of Systems Constitutional: no fever, no chills, no body aches, no fatigue, no weakness, no weight loss and no weight gain Eyes: + corrective lenses and + itchy eyes; no dry eyes and no eye pain Ear, Nose, Mouth, Throat: no ear pain, no tinnitus and no dizziness Respiratory: no cough and no wheezing Mild chronic SOB and no change in the past week Cardiovascular: no chest pain, no palpitations, no syncope and no edema Gastrointestinal: no abdominal pain, no nausea and no vomiting Genitourinary: no dysuria, no hematuria and no pelvic pain Integumentary: no rash, no lesions, no sores and no change in skin color Neurologic: no gait abnormality, no falls, no localized weakness, no tremor(s) and no confusion Psychiatric: no depression, no anxiety and no confusion Endocrine: no fatigue, no polydipsia, no polyphagia and no polyuria Allergy / Immunological: no GI upset with certain foods, no urticaria, no wheezing and no cough Physical Exam Constitutional: WD/WN, vitals as above well developed and well nourished Eyes: PERRL, conjunctivae normal, anicteric sclerae ENMT: external ear and nose normal, oropharynx normal Neck: trachea midline, no thyromegaly Respiratory: normal respiratory effort, lungs clear to auscultation Cardiovascular: RRR, no murmur, no edema Gastrointestinal (Abdomen): normal bowel sounds, soft, nontender, no hepatosplenomegaly Musculoskeletal: no cyanosis or clubbing, extremities motor strength 5/5 Skin: no rashes, warm and dry Neurologic: patellar DTR's 2+ bilat, sensation intact Psychiatric: A+Ox3, euthymic affect Lymphatic: no cervical or axillary lymphadenopathy Results & Data Vital Signs (Past 12 Hours) Vital Signs Temp Pulse Pulse Resp BP BP BP 06/13/19 08:22 67 110/68 06/13/19 07:05 36.5 C 81 17 97/58 L 06/13/19 02:00 36.4 C L 79 18 121/78 06/12/19 23:39 80 18 161/98 H 06/12/19 22:34 80 18 149/95 H 06/12/19 22:24 06/12/19 21:31 36.5 C 100 H 20 153/87 H Pulse Ox 06/13/19 08:22 06/13/19 07:05 98 06/13/19 02:00 98 06/12/19 23:39 98 06/12/19 22:34 97 06/12/19 22:24 97 06/12/19 21:31 97 Laboratory Results WBC 6, Hb 9.3, Hct 28, platelets 237, Na 144, K 4.6, BUN 25, Cr 1.14. Normal LFTs Diagnostic Findings CT 7/24/19: 1. Scattered colonic diverticuli. 2. Otherwise negative study within the limitations of an unenhanced scan. (1) GI bleed GI bleed type/associated pathology: unspecified gastrointestinal hemorrhage type Qualified Code(s): K92.2 - Gastrointestinal hemorrhage, unspecified
[2019-06-13] MEDS ORDERED: FAMOTIDINE 20 MG in SYRINGE 3 ML IV SCH (09:00)
[2019-06-13 11:08] LABS: Hematocrit (blood only) 27.3 % (37-47); Hemoglobin 9.1 g/dL (12.0-16.0)
[2019-06-13] MEDS: LAVAGE SOLUTION 4000ML PO SCH ×2 (12:18→18:02)
[2019-06-13 16:52] LABS: Hematocrit (blood only) 27.1 % (37-47)
--- NOTE | 2019-06-13 18:49 | Hospitalist Progress Note ---
Date of Service June 13, 2019 Assessment & Plan (1) Bright red rectal bleeding: Admitted with bright red rectal bleeding about 5-6 times before admission Denies any significant abdominal pain Has not had this problem before She does not remember when she had a colonoscopy GI consult-appreciate input and recommendation Hemoglobin is dropped from 12 to 9 Monitor H&H Colonoscopy tomorrow Present on Admission?: Yes (2) Abdominal pain: No significant abdominal pain Clinically no tenderness and no distention (3) Chronic kidney disease, stage III (moderate): Monitor p.m. to evaluate hospital (4) HTN (hypertension): Blood pressure remains stable DVT prophylaxis SCDs CODE STATUS DNR Subjective 06/13 Patient was seen and examined in telemetry unit He was admitted with bright red rectal bleed about 5 or 6 times prior to admission Denies any abdominal pain No more bleeding since admission Review of Systems Review of Systems: All systems reviewed and unremarkable except as noted below Gastrointestinal: no abdominal pain, no bloating, no cramping and no melena Physical Exam Physical Exam: No apparent distress at rest Constitutional: well developed and well nourished; no acute distress and not ill appearing Eyes: PERRL, conjunctivae normal, anicteric sclerae ENMT: external ear and nose normal, oropharynx normal Neck: trachea midline, no thyromegaly Respiratory: normal respiratory effort Cardiovascular: Rate/Rhythm: regular rate and regular rhythm Gastrointestinal (Abdomen): Inspection/Auscultation: abdomen normal to inspection and normal bowel sounds; abdomen not distended Percussion/Palpation: abdomen soft; abdomen nontender Musculoskeletal: No acute arthritis Lymphatic: no cervical or axillary lymphadenopathy Results & Data Vital Signs (Past 12 Hours) Vital Signs Temp Pulse Pulse Pulse Resp BP Pulse Ox 06/13/19 16:16 36.5 C 73 16 129/67 99 06/13/19 15:59 80 06/13/19 14:02 91 H 138/82 06/13/19 11:45 36.6 C 73 18 117/70 98 06/13/19 08:22 67 110/68 06/13/19 08:20 68 06/13/19 07:05 36.5 C 81 17 97/58 L 98 Laboratory Results Short CBC 06/12/19 06/13/19 06/13/19 Range/Units 22:07 05:15 10:48 WBC 6.99 6.11 (4.8-10.8) K/uL Hgb 12.4 9.3 L D 9.1 L (12.0-16.0) g/dL Hct 37.7 28.1 L 27.3 L (37-47) % Plt Count 275 237 (130-400) K/uL 06/13/19 Range/Units 16:46 WBC (4.8-10.8) K/uL Hgb 9.0 L (12.0-16.0) g/dL Hct 27.1 L (37-47) % Plt Count (130-400) K/uL BMP 06/12/19 06/13/19 22:07 05:15 Sodium 143 144 Potassium 4.4 4.6 Chloride 114 H 116 H Carbon Dioxide 24 24 BUN 26 H 25 H Creatinine 1.38 H 1.14 Glucose 106 H 96 Calcium 8.8 7.7 L Cardiac Enzymes 06/12/19 Range/Units 22:07 Troponin I < 0.015 (0-0.045) ng/ml Liver Function 06/12/19 Range/Units 22:07 Total Bilirubin 0.3 (0.2-1) mg/dl AST 15 (15-37) U/L ALT 20 (12-78) U/L Alkaline Phosphatase 68 (45-117) U/L Albumin 3.5 (3.4-5.0) gm/dl Medications Administered Current Inpatient Medications Hydralazine HCl (Apresoline) 25 mg PO TID [facility] Stop: 07/13/19 08:59 Last Admin: 06/13/19 14:04 Dose: 25 mg Documented by: Sodium Chloride (Nss) 250 mls @ 15 mls/hr IV .[id number] PRN PRN Reason: For Transfusion Stop: 07/13/19 02:36 Sodium Chloride (Nss 1000ml) 1,000 mls @ 100 mls/hr IV .Q10H [facility] Stop: 07/13/19 03:14 Last Admin: 06/13/19 13:16 Dose: 100 mls/hr Documented by: Pantoprazole Sodium 40 mg/ (Syringe) 10 mls @ 5 mls/min IV BID@0900,2100 [facility] Stop: 07/13/19 08:59 Last Admin: 06/13/19 08:22 Dose: 5 mls/min Documented by: Levothyroxine Sodium (Synthroid) 75 mcg PO DAILYBB [facility] Stop: 07/13/19 06:29 Last Admin: 06/13/19 06:33 Dose: 75 mcg Documented by: Metoprolol Succinate ([facility] Xl) [facility] [place]: 07/13/19 08:59 Last Admin: 06/13/19 08:21 Dose: 25 mg Documented by: (1) Abdominal pain Abdominal location: generalized Qualified Code(s): R10.84 - Generalized abdominal pain
[2019-06-13 23:12] LABS: Hematocrit (blood only) 27.1 % (37-47)
[2019-06-14] MEDS: LEVOTHYROXINE SODIUM 75 MCG TABLET PO SCH (06:04)
[2019-06-14 06:34] LABS: Basophils # (auto) 0.02 K/uL (0-0.2); Basophils % (auto) 0.5 %; Hematocrit (blood only) 24.3 % (37-47); Hemoglobin 7.9 g/dL (12.0-16.0); Immature Granulocytes # (auto) 0.03 K/uL (0.00-0.02); Immature Granulocytes % (auto) 0.7 %; Lymphocytes # (auto) 1.44 K/uL (1.2-3.4); Lymphocytes % (auto) 32.7 %; Mean Corpuscular Hgb Conc 32.5 g/dL (32-36); Mean Corpuscular Volume 86.8 fL (80-100); Mean Platelet Volume 9.6 fL (7.4-10.4); Monocytes # (auto) 0.35 K/uL (0.11-0.59); Monocytes % (auto) 7.9 %; Neutrophils # (auto) 2.57 K/uL (1.4-6.5); Neutrophils % (auto) 58.2 %; Platelet Count 223 K/uL (130-400); RDW Coefficient of Variation 14.2 % (11.5-14.5); RDW Standard Deviation 45.3 fL (36.4-46.3); White Blood Count 4.41 K/uL (4.8-10.8)
[2019-06-14 07:04] LABS: RBC Morphology Unremarkable
[2019-06-14 07:17] LABS: BUN Creatinine Ratio 14.3 (10-20); Calcium 7.7 mg/dl (8.5-10.1); Est GFR (African American) 61.6; Est GFR (Non-African American) 53.2; Potassium 4.1 mmol/L (3.5-5.1)
[2019-06-14] MEDS: PANTOprazole 40 MG in SYRINGE 0 ML IV SCH ×2 (07:29→20:39)
[2019-06-14] MEDS: METOPROLOL SUCC 25MG EXT REL TAB PO SCH (08:12)
--- NOTE | 2019-06-14 08:39 | Gastroenterology Progress Note ---
Date of Service June 14, 2019 Assessment & Plan (1) GI bleed: Ms. Mariela Diallo is an 78 yr old female with significant (drop in Hb) painless rectal bleeding. In the setting of diverticulosis, this most likely represents a diverticular bleed. 1. Colonoscopy today. Will also add EGD for more complete anemia work up. 2. Please keep pt NPO. Supervising Physician Co-Signing Physician Notes We are planning to do upper endoscopy and colonoscopy to evaluate this patient's history of anemia and hematochezia. We discussed the risks to include bleeding, infection, perforation and need for follow-up exams. Subjective Ms. Mariela Diallo is an 78 yr old female who presented for painless bright red rectal bleeding on 06/12/19. Hb 12-> 7.9 CT abd/pelvis (non contrast) on arrival with diverticlosis, no significant abnormalities. Prepped for colonoscopy today. Drank entire prep. Many diarrheal BMs, still blood tinged in most recent BM around midnight. VS stable. Electrolytes normal (N144, K4.1) No adverse events over night. Review of Systems Review of Systems: ROS: Gen: Denies weakness, fevers, weight loss Eyes: No eye redness, or pain, no recent vision changes Resp: No SOB, no cough Cardio: No palpitations/irregular beats, no chest pain GI: No abdominal pain, no nausea/vomiting, + diarrhea with prep, + bright red blood rectally. : Denies pain on urination Skin: No jaundice, itching or new rashes Eyes: + corrective lenses and + itchy eyes; no dry eyes and no eye pain Respiratory: Mild chronic SOB and no change in the past week Physical Exam Constitutional: WD/WN, vitals as above well developed and well nourished Eyes: PERRL, conjunctivae normal, anicteric sclerae ENMT: external ear and nose normal, oropharynx normal Neck: trachea midline, no thyromegaly Respiratory: normal respiratory effort, lungs clear to auscultation Cardiovascular: RRR, no murmur, no edema Gastrointestinal (Abdomen): normal bowel sounds, soft, nontender, no hepatosplenomegaly Musculoskeletal: no cyanosis or clubbing, extremities motor strength 5/5 Skin: no rashes, warm and dry Neurologic: patellar DTR's 2+ bilat, sensation intact Psychiatric: A+Ox3, euthymic affect Lymphatic: no cervical or axillary lymphadenopathy Results & Data Vital Signs (Past 12 Hours) Vital Signs Temp Pulse Pulse Resp BP BP Pulse Ox 06/14/19 08:05 36.6 C 75 17 151/70 H 98 06/14/19 06:22 68 06/14/19 04:06 36.5 C 84 17 119/71 98 06/14/19 00:18 36.5 C 82 16 137/78 99 Laboratory Results Hb 7.9, BUN 14, K 4.1. Diagnostic Findings Non contrast CTAP on 06/12: 1. Scattered colonic diverticuli. 2. Otherwise negative study within the limitations of an unenhanced scan. (1) GI bleed GI bleed type/associated pathology: unspecified gastrointestinal hemorrhage type Qualified Code(s): K92.2 - Gastrointestinal hemorrhage, unspecified
[2019-06-14] MEDS: SODIUM CHLORIDE 0.9% 1000ML 1,000 ML IV SCH (09:28)
--- NOTE | 2019-06-14 14:22 | Anesthesiology Consultation ---
Date of Service June 14, 2019 Assessment & Plan (1) Encounter for pre-operative examination: Chart Review Chart Review: Acceptable Risk for Surgery and Patient NOT seen in Pre Admission Testing Consults Requested none History Surgery Operation Date: 06/14/19 09:30 Proposed Procedures p Colonoscopy EGD Dr Ricardo Silva Height/Weight Height: 5 ft 6 in Weight: 60.8 kg Allergies Allergy/AdvReac Type Severity Reaction Status Date / Time cephalexin Allergy Unknown HIVES Verified 06/12/19 22:38 felodipine Allergy Unknown FACE Verified 06/12/19 22:38 FLUSHED, ANKLES SWELLING glycopyrrolate Allergy Unknown WEAKNESS, Verified 06/12/19 22:38 FLUSING, BLOATING Iodinated Contrast- Oral and Allergy Unknown UNKNOWN Verified 06/12/19 22:38 IV Dye iodine Allergy Unknown UNKNOWN Verified 06/12/19 22:38 metoclopramide Allergy Unknown DIZZY, Verified 06/12/19 22:38 DROWSY omeprazole Allergy Unknown TROUBLE Verified 06/12/19 22:38 BREATHING Sulfa (Sulfonamide Allergy Unknown HIVES Verified 06/12/19 22:38 Antibiotics) Medications Home Medications Medication Instructions Recorded Confirmed Last Taken aspirin 81 mg PO QAM 06/12/19 06/12/19 06/12/19 cholecalciferol (vitamin D3) 2,000 unit PO QAM 06/12/19 06/12/19 06/12/19 [Vitamin D3] furosemide 20 mg PO DAILY PRN 06/12/19 06/12/19 Unknown hydralazine 25 mg PO TID 06/12/19 06/12/19 06/12/19 levothyroxine 75 mcg PO QAM 06/12/19 06/12/19 06/12/19 metoprolol succinate 25 mg PO QAM 06/12/19 06/12/19 06/12/19 rabeprazole 20 mg PO QAM 06/12/19 06/12/19 06/12/19 Active Medications Generic Name Dose Route Start Last Admin Trade Name Freq PRN Reason Stop Dose Admin Hydralazine HCl 25 mg 06/13/19 09:00 06/14/19 14:18 Apresoline PO 07/13/19 08:59 Not Given TID [facility] Sodium Chloride 1,000 mls @ 100 mls/hr 06/13/19 03:15 06/14/19 14:13 Nss 1000ml IV 07/13/19 03:14 0 mls/hr .Q10H [facility] Infusion Pantoprazole Sodium 40 mg/ 10 mls @ 5 mls/min 06/13/19 09:00 06/14/19 07:29 Syringe IV 07/13/19 08:59 5 mls/min BID@0900,2100 [facility] Administration Levothyroxine Sodium 75 mcg 06/13/19 06:30 06/14/19 06:04 Synthroid PO 07/13/19 06:29 75 mcg DAILYBB [facility] Administration Metoprolol Succinate 25 mg 06/13/19 09:00 06/14/19 08:12 Toprol Xl PO 07/13/19 08:59 25 mg QAM [facility] Administration Past Medical History Medical History HTN (hypertension) GI bleed (Acute) Chronic kidney disease, stage III (moderate) (Chronic) [place] esophagus Gastroparesis H/O: hysterectomy Hypothyroidism Past Family History Family History Sister Cancer Mother Cancer Father Cancer Past Surgical History Surgical History H/O colonoscopy (Resolved) H/O inguinal hernia repair H/O partial thyroidectomy H/O vitrectomy left History of cataract surgery History of esophagogastroduodenoscopy (EGD) Past Anesthesia History No Hx of Anesthesia Complications Social History Smoking Status: Never smoker Hx Alcohol Use: Yes alcohol intake frequency: a few times a week Hx Substance Use: No Physical Exam Vital Signs Last Vital Signs Temp 36.7 C 06/14/19 11:11 Pulse 74 06/14/19 11:11 Resp 20 06/14/19 11:11 BP 149/71 H 06/14/19 11:11 Pulse Ox 98 06/14/19 11:11 Testing Laboratory Results 06/14/19 05:46 06/14/19 05:46 PT 10.5 Seconds (9.0-12.0) 06/12/19 22:07 INR 1.0 (0.9-1.1) 06/12/19 22:07 APTT 28.4 Seconds (21.0-31.0) 06/12/19 22:07 Blood Type O Positive 06/12/19 22:10 Antibody Screen NEGATIVE 06/12/19 22:10 Electrocardiogram Date: 06/12/19 Findings: + NSR @ (69) Normal sinus rhythm Nonspecific ST abnormality Abnormal ECG When compared with ECG of 15-JUN-2016 19:15, Premature ventricular complexes are no longer Present Confirmed by Buck Haider ([id number]) on 06/13/2019 9:50:31 PM
--- NOTE | 2019-06-14 14:37 | Hospitalist Progress Note ---
Date of Service June 14, 2019 Assessment & Plan (1) Bright red rectal bleeding: Admitted with bright red rectal bleeding about 5-6 times before admission Denies any significant abdominal pain Has not had this problem before She does not remember when she had a colonoscopy GI consult-appreciate input and recommendation Hemoglobin is dropped from 12 to 9 Monitor H&H-hemoglobin dropped to 7.9 today but no more bright red blood per rectum in the hospital Remains asymptomatic Plan colonoscopy today Acute blood loss anemia Secondary to lower GI bleed We will monitor H&H and keep hemoglobin drops below 7 will transfuse (2) Abdominal pain: No significant abdominal pain Clinically no tenderness and no distention No more abdominal pain (3) Chronic kidney disease, stage III (moderate): Monitor p.m. to evaluate hospital Creatinine has been normalized (4) HTN (hypertension): Blood pressure remains stable Blood pressure remains in the upper side of DVT prophylaxis SCDs CODE STATUS DNR Subjective 06/13 Patient was seen and examined in telemetry unit He was admitted with bright red rectal bleed about 5 or 6 times prior to admission Denies any abdominal pain No more bleeding since admission 06/14 The patient was seen and examined in telemetry unit She has had bowel movement since admission but no blood noted in stool She does not have any complaints except she looks pale Globin dropped to 7.9 without any symptoms Will have colonoscopy today Review of Systems Review of Systems: All systems reviewed and unremarkable except as noted below Physical Exam Physical Exam: No apparent distress at rest but looks pale Constitutional: well developed and well nourished; no acute distress and not ill appearing Eyes: PERRL, conjunctivae normal, anicteric sclerae ENMT: external ear and nose normal, oropharynx normal Neck: trachea midline, no thyromegaly Respiratory: normal respiratory effort; no respiratory distress Cardiovascular: Rate/Rhythm: regular rate and regular rhythm Gastrointestinal (Abdomen): Inspection/Auscultation: abdomen normal to inspect ion and normal bowel sounds; abdomen not distended Percussion/Palpation: abdomen soft; abdomen nontender Neurologic: moves all extremities Lymphatic: no cervical or axillary lymphadenopathy Results & Data Vital Signs (Past 12 Hours) Vital Signs Temp Pulse Pulse Resp BP BP Pulse Ox 06/14/19 11:11 36.7 C 74 20 149/71 H 98 06/14/19 08:05 36.6 C 75 17 151/70 H 98 06/14/19 06:22 68 06/14/19 04:06 36.5 C 84 17 119/71 98 Laboratory Results Short CBC 06/13/19 06/13/19 06/14/19 Range/Units 16:46 22:54 05:46 WBC 4.41 L (4.8-10.8) K/uL Hgb 9.0 L 9.0 L 7.9 L (12.0-16.0) g/dL Hct 27.1 L 27.1 L 24.3 L (37-47) % Plt Count 223 (130-400) K/uL BMP 06/14/19 05:46 Sodium 144 Potassium 4.1 Chloride 116 H Carbon Dioxide 22 BUN 14 Creatinine 1.00 Glucose 85 Calcium 7.7 L Medications Administered Current Inpatient Medications Hydralazine HCl (Apresoline) 25 mg PO TID [facility] Stop: 07/13/19 08:59 Last Admin: 06/14/19 14:18 Dose: Not Given Documented by: Sodium Chloride (Nss) 250 mls @ 15 mls/hr IV .[id number] PRN PRN Reason: For Transfusion Stop: 07/13/19 02:36 Sodium Chloride (Nss 1000ml) 1,000 mls @ 100 mls/hr IV .Q10H [facility] Stop: 07/13/19 03:14 Last Infusion: 06/14/19 14:13 Dose: 0 mls/hr Documented by: Pantoprazole Sodium 40 mg/ (Syringe) 10 mls @ 5 mls/min IV BID@0900,2100 [facility] Stop: 07/13/19 08:59 Last Admin: 06/14/19 07:29 Dose: 5 mls/min Documented by: Levothyroxine Sodium (Synthroid) 75 mcg PO DAILYBB [facility] Stop: 07/13/19 06:29 Last Admin: 06/14/19 06:04 Dose: 75 mcg Documented by: Metoprolol Succinate (Toprol Xl) 25 mg PO QAM [facility] Stop: 07/13/19 08:59 Last Admin: 06/14/19 08:12 Dose: 25 mg Documented by: (1) Abdominal pain Abdominal location: generalized Qualified Code(s): R10.84 - Generalized abdominal pain
[2019-06-14] MEDS ORDERED: LIDOCAINE HCL 2% 2 ML VIAL/AMP(20MG/ML) INFIL ONE (14:50)
[2019-06-14] MEDS ORDERED: PROPOFOL IV EMULSION 10 MG/ML 20 ML VIAL IV ONE ×2 (14:50→15:31)
--- NOTE | 2019-06-14 15:46 | GI REPORT ---
Patient Name: Mariela Diallo Procedure Date: 06/14/2019 3:04 PM Date of : 1940 Admit Type: Inpatient Age: 78 Gender: Female Attending MD: Fabrizio Silva DO Procedure: Colonoscopy Providers: Fabrizio Silva DO Referring MD: Freedom Le Indications: Hematochezia Medicines: Monitored Anesthesia Care Complications: No immediate complications. Estimated blood loss: Minimal. Estimated Blood Loss: Estimated blood loss was minimal. Procedure: Pre-Anesthesia Assessment: - Prior to the procedure, a History and Physical was performed, and patient medications, allergies and sensitivities were reviewed. The patient's tolerance of previous anesthesia was reviewed. - The risks and benefits of the procedure and the sedation options and risks were discussed with the patient. All questions were answered and informed consent was obtained. - Patient identification and proposed procedure were verified prior to the procedure by the physician, the nurse and the watch dial stoner. The procedure was verified in the procedure room. - Pre-procedure physical examination revealed no contraindications to sedation. - ASA Grade Assessment: III - A patient with severe systemic disease. - The anesthesia plan was to use monitored anesthesia care (MAC). - Immediately prior to administration of medications, the patient was re-assessed for adequacy to receive sedatives. - The heart rate, respiratory rate, oxygen saturations, blood pressure, adequacy of pulmonary ventilation, and response to care were monitored throughout the procedure. - The physical status of the patient was re-assessed after the procedure. After I obtained informed consent, the scope was passed under direct vision. Throughout the procedure, the patient's blood pressure, pulse, and oxygen saturations were monitored continuously. The scope was introduced through the anus and advanced to the cecum, identified by appendiceal orifice and ileocecal valve. The colonoscopy was performed without difficulty. The patient tolerated the procedure well. The quality of the bowel preparation was good. Findings: The digital rectal exam findings include non-thrombosed external hemorrhoids. Pertinent negatives include normal sphincter tone. A 6 mm polyp was found in the ascending colon. The polyp was sessile. The polyp was removed with a cold snare. Resection and retrieval were complete. Estimated blood loss was minimal. Multiple medium-mouthed diverticula were found in the sigmoid colon and descending colon. Internal hemorrhoids were found during retroflexion. The hemorrhoids were moderate. The exam was otherwise without abnormality. Impression: - Non-thrombosed external hemorrhoids found on digital rectal exam. - One 6 mm polyp in the ascending colon, removed with a cold snare. Resected and retrieved. - Mild diverticulosis in the sigmoid colon and in the descending colon. - Internal hemorrhoids. - The examination was otherwise normal. Recommendation: - Return patient to hospital young for ongoing care. - Await pathology results. -Consider use of a fiber supplement in addition to MiraLAX 17 g/day. Bleeding could have been related to a diverticular hemorrhage or perhaps hemorrhoidal bleeding - Repeat colonoscopy in 3 years for surveillance. Fabrizio Silva D.O. Fabrizio Silva, 06/14/2019 3:45:44 PM This report has been signed electronically. Note Initiated On: 06/14/2019 3:04 PM Number of Addenda: 0 I attest to the content of the Intraoperative Record and orders documented therein, exceptions below {[id number]}
--- NOTE | 2019-06-14 15:48 | Communication Note ---
Date of Service: June 14, 2019 The patient underwent upper endoscopy and colonoscopy today. The upper endoscopy was notable for no lesions within the stomach duodenum or esophagus. Colonoscopy was notable for one colonic polyp in the ascending colon, diverticulosis of the colon in the left side in addition to hemorrhoids. Given the patient's drop in hemoglobin and hematocrit I suspect her bleeding was likely related to diverticular hemorrhage. I would suggest monitoring her overnight. Should there be recurrent bleeding then a bleeding scan and perhaps referral to a center with interventional radiology would be of benefit. Upon discharge I would suggest the patient be on an iron supplement for 6 weeks. Please call with any questions or concerns during the remainder of the hospital admission.
--- NOTE | 2019-06-14 15:48 | GI REPORT ---
Patient Name: Mariela Diallo Procedure Date: 06/14/2019 3:04 PM Date of : 1940 Admit Type: Inpatient Age: 78 Gender: Female Attending MD: Fabrizio Silva DO Procedure: Upper GI endoscopy Providers: Fabrizio Silva DO Referring MD: Freedom Le Indications: Acute post hemorrhagic anemia Medicines: Monitored Anesthesia Care Complications: No immediate complications. Estimated blood loss: Minimal. Estimated Blood Loss: Estimated blood loss: none. Procedure: Pre-Anesthesia Assessment: - Prior to the procedure, a History and Physical was performed, and patient medications, allergies and sensitivities were reviewed. The patient's tolerance of previous anesthesia was reviewed. - The risks and benefits of the procedure and the sedation options and risks were discussed with the patient. All questions were answered and informed consent was obtained. - Patient identification and proposed procedure were verified prior to the procedure by the physician, the nurse and the psychiatric rn. The procedure was verified in the procedure room. - Pre-procedure physical examination revealed no contraindications to sedation. - ASA Grade Assessment: III - A patient with severe systemic disease. - After reviewing the risks and benefits, the patient was deemed in satisfactory condition to undergo the procedure. - The anesthesia plan was to use monitored anesthesia care (MAC). - Immediately prior to administration of medications, the patient was re-assessed for adequacy to receive sedatives. - The heart rate, respiratory rate, oxygen saturations, blood pressure, adequacy of pulmonary ventilation, and response to care were monitored throughout the procedure. - The physical status of the patient was re-assessed after the procedure. After obtaining informed consent, the endoscope was passed under direct vision. Throughout the procedure, the patient's blood pressure, pulse, and oxygen saturations were monitored continuously. The Endoscope was introduced through the mouth, and advanced to the third part of duodenum. The upper GI endoscopy was accomplished without difficulty. The patient tolerated the procedure well. Findings: The examined esophagus was normal. The entire examined stomach was normal. The examined duodenum was normal. Impression: - Normal esophagus. - Normal stomach. - Normal examined duodenum. - No specimens collected. Recommendation: - Perform a colonoscopy today. Fabrizio Silva D.O. Fabrizio Silva DO 06/14/2019 3:47:19 PM This report has been signed electronically. Note Initiated On: 06/14/2019 3:04 PM Number of Addenda: 0 I attest to the content of the Intraoperative Record and orders documented therein, exceptions below {[id number]}
--- NOTE | 2019-06-14 15:54 | Anesthesiology Progress Note ---
Date of Service June 14, 2019 Anesthesia Post Procedure Vital Signs Vital Signs: Temp Pulse Pulse Resp BP BP Pulse Ox 06/14/19 15:51 68 14 116/71 100 06/14/19 15:36 36.7 C 16 98/49 L 98 06/14/19 14:36 36.6 C 18 148/81 H 95 06/14/19 11:11 36.7 C 74 20 149/71 H 98 06/14/19 08:05 36.6 C 75 17 151/70 H 98 06/14/19 06:22 68 06/14/19 04:06 36.5 C 84 17 119/71 98 06/14/19 00:18 36.5 C 82 16 137/78 99 06/13/19 19:34 36.7 C 76 17 151/76 H 97 06/13/19 16:16 36.5 C 73 16 129/67 99 06/13/19 15:59 80 Transfer of Care Handoff Completed per policy Notes Mental Status: alert / awake / arousable and participated in evaluation Patient Amnestic to Procedure: Yes Nausea / Vomiting: adequately controlled Pain: adequately controlled Airway Patency, RR, SpO2: stable & adequate BP & HR: stable & adequate Hydration State: stable & adequate Anesthetic Complications: no major complications apparent and Pt Satisfied with anesthetic care
[2019-06-14 17:29] LABS: Hematocrit (blood only) 25.7 % (37-47); Hemoglobin 8.5 g/dL (12.0-16.0)
[2019-06-15] MEDS: LEVOTHYROXINE SODIUM 75 MCG TABLET PO SCH (06:30)
[2019-06-15 06:52] LABS: Basophils # (auto) 0.05 K/uL (0-0.2); Hematocrit (blood only) 25.9 % (37-47); Hemoglobin 8.6 g/dL (12.0-16.0); Immature Granulocytes # (auto) 0.04 K/uL (0.00-0.02); Immature Granulocytes % (auto) 0.8 %; Lymphocytes # (auto) 1.43 K/uL (1.2-3.4); Mean Corpuscular Hgb Conc 33.2 g/dL (32-36); Mean Platelet Volume 9.5 fL (7.4-10.4); Monocytes # (auto) 0.49 K/uL (0.11-0.59); Monocytes % (auto) 9.6 %; Neutrophils % (auto) 60.6 %; Platelet Count 250 K/uL (130-400); RDW Coefficient of Variation 14.3 % (11.5-14.5); RDW Standard Deviation 44.6 fL (36.4-46.3); Red Blood Count 3.01 M/uL (4.2-5.4); White Blood Count 5.11 K/uL (4.8-10.8)
[2019-06-15 07:21] LABS: Calcium 8.4 mg/dl (8.5-10.1); Creatinine Clr Calc Pharmacy 34.9 ml/min; Est GFR (African American) 49.4; Est GFR (Non-African American) 42.7
[2019-06-15] MEDS: METOPROLOL SUCC 25MG EXT REL TAB PO SCH (09:10)
[2019-06-15] MEDS: PANTOprazole 40 MG in SYRINGE 0 ML IV SCH (09:10)
[2019-06-15] MEDS ORDERED: PANTOprazole 40 MG TAB PO SCH (09:15)
--- NOTE | 2019-06-15 11:43 | Hospitalist Progress Note ---
Date of Service June 15, 2019 Assessment & Plan (1) Bright red rectal bleeding: Admitted with bright red rectal bleeding about 5-6 times before admission Denies any significant abdominal pain Has not had this problem before She does not remember when she had a colonoscopy GI consult-appreciate input and recommendation Hemoglobin is dropped from 12 to 9 Monitor H&H-hemoglobin dropped to 7.9 today but no more bright red blood per rectum in the hospital EGD-upper endoscopy was notable for no lesions within the stomach duodenum or esophagus Colonoscopy-notable for one colonic polyp in the ascending colon, diverticulosis of the colon in the left side in addition to hemorrhoids Patient remains asymptomatic and no more bleeding Has been tolerating diet Acute blood loss anemia Secondary to lower GI bleed We will monitor H&H and keep hemoglobin drops below 7 will transfuse Repeat hemoglobin is 8.6 today Will discharge home on oral iron (2) Abdominal pain: No significant abdominal pain Clinically no tenderness and no distention No more abdominal pain (3) Chronic kidney disease, stage III (moderate): Monitor p.m. to evaluate hospital Creatinine has been normalized (4) HTN (hypertension): Blood pressure remains stable Blood pressure remains in the upper side of DVT prophylaxis SCDs CODE STATUS DNR Subjective 06/13 Patient was seen and examined in telemetry unit He was admitted with bright red rectal bleed about 5 or 6 times prior to admission Denies any abdominal pain No more bleeding since admission 06/14 The patient was seen and examined in telemetry unit She has had bowel movement since admission but no blood noted in stool She does not have any complaints except she looks pale Globin dropped to 7.9 without any symptoms Will have colonoscopy today 06/15 Patient was seen and examined in telemetry unit She has been feeling a lot better She has had bowel movement without any bleeding Her hemoglobin more than 8 and she has been tolerating regular diet Review of Systems Review of Systems: All systems reviewed and unremarkable except as noted below Gastrointestinal: no abdominal pain, no bloating, no nausea and no vomiting Physical Exam Physical Exam: Lying in bed comfortably Constitutional: well developed and well nourished; no acute distress and not ill appearing Eyes: PERRL, conjunctivae normal, anicteric sclerae ENMT: external ear and nose normal, oropharynx normal Neck: trachea midline, no thyromegaly Respiratory: normal respiratory effort; no respiratory distress Cardiovascular: Rate/Rhythm: regular rate and regular rhythm Gastrointestinal (Abdomen): Inspection/Auscultation: abdomen normal to inspection and normal bowel sounds; abdomen not distended Percussion/Palpation: abdomen soft; abdomen nontender Neurologic: moves all extremities Lymphatic: no cervical or axillary lymphadenopathy Results & Data Vital Signs (Past 12 Hours) Vital Signs Temp Pulse Pulse Resp BP Pulse Ox 06/15/19 08:00 51 L 06/15/19 07:12 36.6 C 77 18 124/70 99 06/15/19 04:23 36.6 C 65 20 151/83 H 97 Laboratory Results Short CBC 06/14/19 06/15/19 Range/Units 16:58 06:23 WBC 5.11 (4.8-10.8) K/uL Hgb 8.5 L 8.6 L (12.0-16.0) g/dL Hct 25.7 L 25.9 L (37-47) % Plt Count 250 (130-400) K/uL BMP 06/15/19 06:23 Sodium 140 Potassium 4.0 Chloride 110 H Carbon Dioxide 24 BUN 11 Creatinine 1.20 Glucose 78 Calcium 8.4 L Medications Administered Current Inpatient Medications Hydralazine HCl (Apresoline) 25 mg PO TID [facility] Stop: 07/13/19 08:59 Last Admin: 06/15/19 09:10 Dose: 25 mg Documented by: Sodium Chloride (Nss) 250 mls @ 15 mls/hr IV .[id number] PRN PRN Reason: For Transfusion Stop: 07/13/19 02:36 Levothyroxine Sodium (Synthroid) 75 mcg PO DAILYBB [facility] Stop: 07/13/19 06:29 Last Admin: 06/15/19 06:30 Dose: 75 mcg Documented by: Metoprolol Succinate ([facility] Xl) [facility] [place] Stop: 07/13/19 08:59 Last Admin: 06/15/19 09:10 Dose: 25 mg Documented by: Pantoprazole Sodium (Protonix) [facility] [place] Stop: 07/15/19 09:14 Last Admin: 06/15/19 10:38 Dose: 40 mg Documented by: (1) Abdominal pain Abdominal location: generalized Qualified Code(s): R10.84 - Generalized abdominal pain
--- NOTE | 2019-06-16 08:01 | Discharge Summary ---
Date of Service June 16, 2019 Admission HPI Per Admitting Provider DICTATED BY: Epi Terry MD DATE OF ADMISSION: 06/13/2019 CHIEF COMPLAINT: Bright red blood per rectum. HISTORY OF PRESENT ILLNESS: This is an 78-year-old female with past medical history significant for hypothyroidism, hyperlipidemia, chronic kidney disease stage III, hypertension, irritable bowel syndrome, Moncada's esophagus, gastroparesis, history of cervical disease with myelopathy, presents with bright red blood per rectum. It started yesterday evening. Few episodes at home and couple of episodes in the ER. Hemodynamically stable. This is the first time it happened. Denies abdominal pain. No nausea, no vomiting. Currently resting comfortably and hemodynamically stable. Denies any chest pain, no shortness of breath, no cough, no fever, no chills, no headache, no blurred vision, no earache, no runny nose, no sore throat, no difficulty swallowing. Otherwise, appetite is okay. Lives with her . Ambulates okay. Principal Diagnosis Acute lower GI bleed likely secondary to diverticular bleed.-No acute bleeding as per colonoscopy Discharge Exam Constitutional well developed and well nourished; no acute distress and not ill appearing Eyes PERRL, conjunctivae normal, anicteric sclerae ENMT external ear and nose normal, oropharynx normal Neck trachea midline, no thyromegaly Respiratory normal respiratory effort; no respiratory distress Cardiovascular Rate/Rhythm: regular rate and regular rhythm Gastrointestinal (Abdomen) Inspection/Auscultation: abdomen normal to inspection and normal bowel sounds; abdomen not distended Percussion/Palpation: abdomen soft; abdomen nontender Neurologic moves all extremities Lymphatic no cervical or axillary lymphadenopathy Discharge Data Allergies Allergy/AdvReac Type Severity Reaction Status Date / Time cephalexin Allergy Unknown HIVES Verified 06/12/19 22:38 felodipine Allergy Unknown FACE Verified 06/12/19 22:38 FLUSHED, ANKLES SWELLING glycopyrrolate Allergy Unknown WEAKNESS, Verified 06/12/19 22:38 FLUSING, BLOATING Iodinated Contrast- Oral and Allergy Unknown UNKNOWN Verified 06/12/19 22:38 IV Dye iodine Allergy Unknown UNKNOWN Verified 06/12/19 22:38 metoclopramide Allergy Unknown DIZZY, Verified 06/12/19 22:38 DROWSY omeprazole Allergy Unknown TROUBLE Verified 06/12/19 22:38 BREATHING Sulfa (Sulfonamide Allergy Unknown HIVES Verified 06/12/19 22:38 Antibiotics) Consultations 06/12/19 22:47 ED Decision to Admit Stat 06/13/19 02:33 Consult Gastroenterology Routine Procedures Performed Operation Date: 06/14/19 09:30 Actual Procedures p Esophagogastroduodenoscopy - Fabrizio Ricardo s Colonoscopy Polypectomy - Fabrizio Silva Ordered Studies 06/12/19 22:47 CT abd pelvis wo con Stat Hospital Course (1) Bright red rectal bleeding: Admitted with bright red rectal bleeding about 5-6 times before admission Denies any significant abdominal pain Has not had this problem before She does not remember when she had a colonoscopy GI consult-appreciate input and recommendation Hemoglobin is dropped from 12 to 9 Monitor H&H-hemoglobin dropped to 7.9 today but no more bright red blood per rectum in the hospital EGD-upper endoscopy was notable for no lesions within the stomach duodenum or esophagus Colonoscopy-notable for one colonic polyp in the ascending colon, diverticulosis of the colon in the left side in addition to hemorrhoids Patient remains asymptomatic and no more bleeding Has been tolerating diet Acute blood loss anemia Secondary to lower GI bleed We will monitor H&H and keep hemoglobin drops below 7 will transfuse Repeat hemoglobin is 8.6 today Will discharge home on oral iron (2) Abdominal pain: No significant abdominal pain Clinically no tenderness and no distention No more abdominal pain (3) Chronic kidney disease, stage III (moderate): Monitor p.m. to evaluate hospital Creatinine has been normalized (4) HTN (hypertension): Blood pressure remains stable Blood pressure remains in the upper side of DVT prophylaxis SCDs CODE STATUS DNR Total Time Total Time Spent Total Time Spent (In Minutes): 35 minutes Total Time Includes: Examination of the Patient, Discharge Planning, Medication Reconciliation and Communication With Other Providers Discharge Plan Discharge Items Patient Disposition: Home - Self-Care Reason For Visit: GI BLEED Discharge Diagnosis: Acute lower GI bleed likely secondary to diverticular bleed.-No acute bleeding as per colonoscopy Condition: Good Discharge Goals: Decrease discomfort, Improve function and Increase independence Activity: Resume your previous activity Non-emergency contact: Primary Care Provider Call non-emergency contact if: you have any medication questions and your symptoms worsen Follow-up/Referrals: Angelito Guzman MD [Primary Care Provider] - (Your doctor's office will call with an appointment within 7 days) Diet: Regular Addtl Provider Instructions: EGD-upper endoscopy was notable for no lesions within the stomach duodenum or esophagus Colonoscopy-notable for one colonic polyp in the ascending colon, diverticulosis of the colon in the left side in addition to hemorrhoids New medications: Iron tablet Prescriptions: New ferrous sulfate [iron] 325 mg (65 mg iron) tablet 325 mg PO BID Qty: 60 RF: 0 Continued rabeprazole 20 mg tablet,delayed release (DR/EC) 20 mg PO QAM RF: 0 hydralazine 25 mg tablet 25 mg PO TID RF: 0 aspirin 81 mg Tablet,Delayed Release (Dr/Ec) 81 mg PO QAM RF: 0 levothyroxine 75 mcg tablet 75 mcg PO QAM RF: 0 furosemide 20 mg tablet 20 mg PO DAILY PRN (Reason: Edema) RF: 0 metoprolol succinate 25 mg tablet extended release 24 hr 25 mg PO QAM RF: 0 cholecalciferol (vitamin D3) [Vitamin D3] 2,000 unit Tablet 2,000 unit PO QAM RF: 0 Stand-Alone Forms: [facility] Discharge Orders: Discharge Order (Routine); Ordered 06/15/19 Ordered By: Freedom Le Admission Data Admit Date/Time: 06/13/19 00:55 Attending Provider: Freedom Le Admit Provider: Epi Terry Primary Care Provider: Angelito Guzman Other Providers: Epi Terry ; Fabrizio Silva Service: Telemetry Other Interventions: Discharge Summary Assessment (RN) Last Done: 06/15/19 14:08 DC Date/Time DO NOT enter until pt leaves facility: 06/15/19 15:05
== END 2019-06-15 15:05 | disposition home or self-care (01) | DRG 378 ==
LOC: ED 21:30 → SUATTDRO 06-13 00:55 → 2S 06-13 00:55